=== PATIENT | female | born 1995 | race African-American/Black ===

== ENCOUNTER 2017-03-18 15:02 | Inpatient (IN) | payer BC ==
[~2017-03-18] VITALS: Ht 157.5 cm; Wt 45.0 kg
[2017-03-18 16:49] LABS: HEMATOCRIT 44.2 % (36.0-46.0); MCH 27.9 PG (29.0-34.0); MCHC 32.8 G/DL (30.0-36.0); MEAN PLAT.VOLUME 10.4 uM^3 (9.5-12.4); PLATELET COUNT 239 K/uL (156-360); RBC DIS.WIDTH-CV 14.7 % (11.8-14.6); RBC DIS.WIDTH-SD 45.7 % (39-53)
[2017-03-18 16:51] LABS: WHITE BLOOD COUNT 12.6 K/uL (4.1-10.2)
[2017-03-18 16:58] LABS: CHLORIDE 108 mEq/L (99-109); POTASSIUM 3.7 mEq/L (3.7-5.4); SODIUM 139 mEq/L (136-147)
[2017-03-18 17:01] LABS: GLUCOSE 85 mg/dL (70-99)
[2017-03-18 17:02] LABS: ANION GAP 9 MEQ/L (2-14); TOTAL BILIRUBIN 1.6 mg/dL (0.0-1.0)
[2017-03-18 17:04] LABS: ALKALINE PHOSPHATASE 48 IU/L (3-129); GFR ESTIMATE (CALCULATED) > 59 mL/min/
[2017-03-18 17:05] LABS: UREA NITROGEN (BUN) 6 mg/dL (9-23)
[2017-03-18] MEDS ORDERED: CITALOPRAM HBR20 MG PO (17:36)
[2017-03-18] MEDS ORDERED: CONCERTA18 MG PO (17:36)
[2017-03-18 18:17] LABS: INTERNAL CONTROL VALID? YES
[2017-03-18 18:40] LABS: AMPHETAMINE NEGATIVE (500 ng/mL); BARBITURATES NEGATIVE (200 ng/mL); BENZODIAZEPINES NEGATIVE (150 ng/mL); COCAINE NEGATIVE (150 ng/mL); INTERNAL CONTROLS VALID? YES; METHADONE NEGATIVE (200 ng/mL); METHAMPHETAMINE NEGATIVE (500 ng/mL); OPIATES (MORPHINE) NEGATIVE (100 ng/mL); OXYCODONE NEGATIVE (100 ng/mL); PHENCYCLIDINE NEGATIVE (25 ng/mL); PROPOXYPHENE NEGATIVE (300 ng/mL); THC CANNABINOIDS PRESUMPTIVE POSITIVE (50 ng/mL); TRICYCLIC ANTIDEPRESSANTS NEGATIVE (300 ng/mL)
[2017-03-18 19:23] VITALS: BP 107/73
[2017-03-19 07:43] VITALS: BP 102/57
[2017-03-19 15:22] VITALS: BP 135/75
[2017-03-20 07:29] VITALS: BP 108/58
[2017-03-20 15:21] VITALS: BP 106/66
[2017-03-21 07:24] VITALS: BP 105/61
[2017-03-21 15:39] VITALS: BP 134/63
[2017-03-22 07:45] VITALS: BP 116/59
[2017-03-22] MEDS ORDERED: CITALOPRAM HBR10 MG PO (09:15)
== END 2017-03-22 11:03 | disposition home or self-care (01) | DRG 885 ==
LOC: EME 15:02 → EDOF 16:19 → 1WEST 16:19
PROVIDERS: Emergency Medicine
PROC: 0HQEXZZ Repair Left Lower Arm Skin, External Approach (ICD-10-PCS; principal; 2017-03-18)
DX: F33.9 Major depressive disorder, recurrent, unspecified (principal); S51.812A Laceration without foreign body of left forearm, initial encounter; X78.1XXA Intentional self-harm by knife, initial encounter; R45.851 Suicidal ideations; F12.10 Cannabis abuse, uncomplicated; Y92.9 Unspecified place or not applicable
CPT/HCPCS: 73650; 80053; 84703; 85027; 90839; 97150 GO; 97165 GO; 99281; 99285